=== PATIENT | female | born 1970 | race Two or more races ===

== ENCOUNTER 2024-10-13 13:38 | Emergency (ER) | payer MEDICAID, SELFPAY ==
[2024-10-13 13:48] VITALS: BP 134/81; PULSE 75; RESP 18; TEMP 36.8; O2SAT 96
--- NOTE | 2024-10-13 13:58 | XR_ITS ---
Examination: PA and lateral chest 2 views FINDINGS: Upright PA and lateral chest 2 views Date and time: October 13, 2024 1420 hours INDICATIONS: Chest pain and shortness of breath today. FINDINGS: Stable minimal scarring left base compared with April 11, 2022 No pneumonia Normal heart size IMPRESSION: Stable minimal scarring left base No interval pneumonia or pulmonary edema
--- NOTE | 2024-10-13 13:58 | EKG_ITS ---
[facility] Test Date: 2024-10-13 Pat Name: FARZANA DIMAS Department: Room: - Gender: Female Scale Operator: : 1970 Requested By: Julian Friedman (SALVADOR) Order Number: [id number] Reading MD: Julian Friedman (INSULATING MACHINE OPERATOR) Measurements Intervals [place] Rate: 72 P: 9 WA: 136 QRS: 31 QRSD: 85 T: 29 QT: 412 QTc: 451 Interpretive Statements SINUS RHYTHM Compared to ECG 04/11/2022 17:04:29 No significant changes /store/S0/[id number].pdf
--- NOTE | 2024-10-13 13:58 | PD.EDRME ---
Rapid Medical Screening Exam RME Arrival date/time: 10/13/24 13:38 54-year-old female presents to the Emergency Department today for complaints of elevated blood sugar and dizziness Chief Complaint: Syncope / Near Syncope Time Seen by Provider: 10/13/24 13:45 Vital signs: Vital Signs Temperature 98.2 F 10/13/24 13:48 Pulse Rate 75 10/13/24 13:48 Respiratory Rate 18 10/13/24 13:48 Blood Pressure 134/81 H 10/13/24 13:48 Pulse Oximetry (%) 96 10/13/24 13:48 Oxygen Delivery Method Room Air 10/13/24 13:48
[2024-10-13 14:40] LABS: Base Excess, Venous -3 (-3-3); O2 Saturation, Venous 65 % (96-97); PCO2, Venous 34 mmHg (36-56); PO2, Venous 33 mmHg (15-58)
[2024-10-13 14:44] LABS: Beta Hydroxybutyrate 0.2 mmol/L (<0.6)
[2024-10-13 14:48] LABS: Basophils # (Auto) 0.1 Thou/mm3 (0.0-0.2); Basophils % (Auto) 1 % (0-2.5); Eosinophils # (Auto) 0.1 Thou/mm3 (0.0-0.5); Eosinophils % (Auto) 2 % (0-10); Hematocrit 37.6 % (36.0-46.0); Hemoglobin 12.5 g/dL (12.0-16.0); Immature Granulocytes % (Auto) 0 % (0-0); Immature Granulocytes Auto 0.02 Thou/mm3 (0.00-0.00); Lymphocytes # (Auto) 2.4 Thou/mm3 (1.0-4.8); Lymphocytes % (Auto) 29 % (10-50); Mean Corpuscular HGB Conc 33.2 g/dl (31.0-37.0); Mean Corpuscular Hemoglobin 26.2 pg (25.0-35.0); Mean Corpuscular Volume 79 fL (80-100); Monocytes # (Auto) 0.4 Thou/mm3 (0.0-0.8); Monocytes % (Auto) 5 % (0-12); Neutrophils # (Auto) 5.2 Thou/mm3 (1.8-7.7); Neutrophils % (Auto) 64 % (37-80); Nucleated Red Blood Cell % 0 /100 WBC (0); Platelet Count 310 Thou/mm3 (140-440); RDW Standard Deviation 38.6 fL (36.4-46.3); Red Blood Count 4.77 Miln/mm3 (4.00-5.20); White Blood Count 8.2 Thou/mm3 (3.6-11.0)
[2024-10-13 14:56] LABS: INR 0.9 (0.9-1.3); Partial Thromboplastin Time 22.8 Seconds (22.0-36.0); Prothrombin Time 10.4 Seconds (9.0-12.2)
[2024-10-13 15:03] LABS: Alanine Aminotransferase 18 U/L (10-49); Albumin, Serum 4.3 gm/dL (3.5-5.0); Albumin/Globulin Ratio 1.8 (1.2-2.2); Alkaline Phosphatase 107 U/L (46-116); Anion Gap 15 (7-16); Aspartate Amino Transferase 24 U/L (0-34); B-Type Natriuretic Peptide 27 pg/mL (0-100); BUN/Creatinine Ratio 13 Ratio (12-20); Bilirubin,Total 0.7 mg/dL (0.3-1.2); Blood Urea Nitrogen 9 mg/dL (9-23); Carbon Dioxide 20.4 mMol/L (20.0-31.0); Chloride 103 mMol/L (98-107); Creatinine (Component) 0.7 mg/dL (0.6-1.3); Globulin 2.4 gm/dL (2.3-3.5); Glucose 159 mg/dL (74-106); Magnesium 2.1 mg/dL (1.6-2.6); Osmolality,Calculated 277 (275-295); Sodium 138 mMol/L (136-145); Total Protein 6.7 gm/dL (5.7-8.2); Troponin I < 0.002 ng/mL (0.0-0.045); eGFR > 60 See Note
[2024-10-13 15:07] LABS: Glucose Estimated Average 295 mg/dL (80-131); Hemoglobin A1C 11.9 % Hgb (4.8-6.0)
--- NOTE | 2024-10-13 15:45 | EDNOTE_ITS ---
ED General RME/HPI General Chief complaint: Syncope / Near Syncope Stated complaint: PASSED OUT STANDING UP DUE TO HIGH SUGAR Time Seen by Provider: 10/13/24 13:45 Arrival date/time: 10/13/24 13:38 Limitations: no limitations RME / HPI RME / HPI narrative: 10/13/24 13:38 54-year-old female presents to the Emergency Department today for complaints of elevated blood sugar and dizziness DR. TRAYLOR MAIN ED EVALUATION: 54 year old female presents to the Emergency Department with complaints of generalized weakness after a syncopal episode today. Per daughter, patient passed out and fell; pateint states she slid and did not hurt herself. No head injury, neck injury, or any pain. No one-sided weakness. PMHx: Diabetes. Denies any known allergies. Family history is significant for kidney failure, father. Social Hx: No tobacco, alcohol, or substance use. Related Data Home Medications ?Medication ?Instructions ?Recorded ?Confirmed metformin 1,000 mg tablet 1,000 mg PO BID 10/31/21 Previous Rx's ?Medication ?Instructions ?Recorded acetaminophen 500 mg tablet 1,000 mg (2 x 500 mg) PO Q ID PRN 10/31/21 (Tylenol Extra Strength) fever or pain #30 tabs Allergies Allergy/AdvReac Type Severity Reaction Status Date / Time No Known Allergies Allergy Verified 10/13/24 13:41 Review of Systems Review of Systems Systems Reviewed: All systems reviewed, normal except as documented Past Medical History Past Medical History ENDOCRINE: Positive Diabetes Mellitus Type 2 Social History SMOKING STATUS: Never smoker SUBSTANCE USE: does not use ALCOHOL: Never ED Exam General Limitations: Present no limitations General appearance: Present alert and in no apparent distress Head Head exam: Present atraumatic, normocephalic and normal inspection Eye Eye exam: Present normal appearance, PERRL and EOMI ENT ENT exam: Present normal exam, normal oropharynx and mucous membranes moist Neck Neck exam: Present normal inspection, full ROM and trachea midline Chest Chest inspection: Present normal inspection and symmetric chest wall rise Respiratory Respiratory exam: Present normal lung sounds bilaterally Cardiovascular Cardiovascular exam: Present regular rate, normal rhythm and normal heart sounds Abdominal Exam Abdominal exam: Present soft and normal bowel sounds Extremities Exam Extremities exam: Present normal inspection and full ROM Back Exam Back exam: Present normal inspection and full ROM Neurological Exam Neurological exam: Present alert, oriented X3, CN II-XII intact and other (right hand dominant) Psychiatric Psychiatric exam: Present normal affect and normal mood Skin Skin exam: Present warm, dry, intact and normal color Course Quality Measures none Orders Category Date Time Status Bedside Blood Glucose NOW Care 10/13/24 13:58 Active EKG (ED ONLY) *Do not use* NOW Care 10/13/24 13:58 Completed EKG (ED Only) Stat Exams 10/13/24 13:58 Draft XR chest 2V Stat Exams 10/13/24 13:58 Completed A1C [Glycohemoglobin w (eAG)] Stat Lab 10/13/24 14:32 Completed B-Type Natriuretic Peptide Stat Lab 10/13/24 14:32 Completed Beta Hydroxybutyrate Stat Lab 10/13/24 14:32 Completed CBC Stat Lab 10/13/24 14:32 Completed Comprehensive Metabolic Panel Stat Lab 10/13/24 14:32 Completed Drug Screen,Urine Stat Lab 10/13/24 13:58 Ordered Magnesium Stat Lab 10/13/24 14:32 Completed Partial Thromboplastin Time Stat Lab 10/13/24 14:32 Completed Prothrombin Time with INR Stat Lab 10/13/24 14:32 Completed Troponin I Stat Lab 10/13/24 14:32 Completed Urinalysis Stat Lab 10/13/24 13:58 Ordered VBG [Venous Blood Gas] Stat Lab 10/13/24 14:32 Completed Vital Signs Vital signs: Vital Signs Temperature 98.2 F 10/13/24 13:48 Pulse Rate 75 10/13/24 13:48 Respiratory Rate 18 10/13/24 13:48 Blood Pressure 134/81 H 10/13/24 13:48 Pulse Oximetry (%) 96 10/13/24 13:48 Oxygen Delivery Method Room Air 10/13/24 13:48 Discharge Plan Plan Patient Disposition: HOME (Self Care) Patient condition on transfer: Stable Prescriptions/Referrals Prescriptions/Med Rec: No Action metformin 1,000 mg Tablet 1,000 mg PO BID acetaminophen [Tylenol Extra Strength] 500 mg tablet 1,000 mg PO QID PRN (Reason: fever or pain) Qty: 30 0RF Referrals: Jewel Paul FNP [Primary Care Provider] - In 1 week Problem List Clinical Impression: Near syncope, Poorly controlled diabetes mellitus Patient/Caregiver Discharge Instructions Education Materials: Exercise to Manage Your Blood Sugar, Diabetes Exercise Plan, Diabetes: Meal Planning, ED Near-Fainting, Uncertain Cause, ED Diet: Diabetes Additional Instructions: Please follow-up with your primary care physician within a week. Please keep a diary of your diet, blood glucose, and medications by the hour for a whole week and show your doctor. Consider a holter monitor. Return to the Emergency Departm ent as needed. Willie un seguimiento con [place] m?dico de cabecera dentro de brennen semana. Por favor, mantenga un diario de [place] dieta, glucosa en von y medicamentos por hora tennille toda brennen semana y mu?streselo a [place] m?dico. Considere un monitor Holter. Regrese al Departamento de Emergencias seg?n sea necesario. Print Language: Marshallese Stand Alone Forms: [employer] Award Info., Work/School Release, Patient Portal Info Letter MDM Narrative [facility] hospital course: I, Maryan Rivers am scribing for and in the presence of Dr. Traylor. Clinical Information Provided by patient and family (daughter) Medical Records Reviewed [facility] Meds/Rx Considered, not Ordered None Labs/Rad/Tests considered, not Ordered None Chronic Illness/Social Conditions Add or document further as needed: PMHx: Diabetes. Denies any known allergies. Family history is significant for kidney failure, father. Social Hx: No tobacco, alcohol, or substance use. EKG Interpretation EKG #1: Date/time of EK10/13/24 1358 hours EKG interpretation: sinus rhythm, rate 72, no acute changes, NV interval 136 ms, QRS duration 85 ms, QT/QTc 412/451, P-R-T axis 9, 31, 29 Lab Interpretation Labs: interpreted by ia Lab(s) interpretation(s): Poorly controlled diabetes, Hemoglobin A1c is 11.9. Imaging Radiology reports / interpretation(s): Procedure(s): XR chest 2V Accession Number(s): [id number] cc: Idalia (SALVADOR),Julian FRANCO; Ronak Marroquin MD~ Examination: PA and lateral chest 2 views FINDINGS: Upright PA and lateral chest 2 views Date and time: October 13, 2024 1420 hours INDICATIONS: Chest pain and shortness of breath today. FINDINGS: Stable minimal scarring left base compared with April 11, 2022 No pneumonia Normal heart size IMPRESSION: Stable minimal scarring left base No interval pneumonia or pulmonary edema Dictated By: Ronak Marroquin MD Diagnosis Differential diagnosis: Syncope, vasovagal syncope, dehydration, poor controlled diabetes Most likely dx, and/or detailed dx discussion: Near syncope Poorly controlled diabetes Dispositon Disposition: Discharge Home
[2024-10-13 15:46] VITALS: BP 123/72; PULSE 63; RESP 16; O2SAT 98
[2024-10-13 17:14] VITALS: BP 117/70; PULSE 67; RESP 15; O2SAT 98
== END 2024-10-13 17:15 | disposition home or self-care (01) ==
PROVIDERS: Nurse Practitioner Primary Care; Emergency Provider Family Medicine; PCP Nurse Practitioner Family
DX: J98.4 Other disorders of lung (principal)
CPT/HCPCS: 36415; 71046; 80053; 80307; 81001; 82010; 82803; 83036; 83735; 83880; 84484; 85025; 85610; 85730; 93005; 99283